=== PATIENT | female | born 1975 | race Caucasian/White ===

== ENCOUNTER 2021-06-22 13:44 | Outpatient (CLI) | payer BC, OTHER | END 2021-06-22 13:45 | disposition home or self-care (01) | LOC: CSHMRI 13:44 | PROVIDERS: ATTEND Family Medicine | DX: M54.16 Radiculopathy, lumbar region (principal); M47.816 Spondylosis without myelopathy or radiculopathy, lumbar region; M51.36 Other intervertebral disc degeneration, lumbar region; M51.06 Intervertebral disc disorders with myelopathy, lumbar region | CPT/HCPCS: 72148 ==